=== PATIENT | female | born 1955 | race Caucasian/White ===

== ENCOUNTER → 2017-12-26 09:32 | Outpatient (CLI) | payer OTHER, SELFPAY ==
--- NOTE | 2017-12-26 09:50 | US_ITS ---
US thyroid FNA w guidance right thyroid nodule, FNA w guidance left thyroid nodule, FNA w guidance left neck lymph nodes HISTORY: Patient was noted to have bilateral thyroid masses and left neck adenopathy on outside ultrasound. Tissue diagnosis is requested ITS.REASON: LEFT THYROID NEOPLASM ORDERING PHYSICIAN: Manjit Calloway MD PATIENT AGE: 62 years COMPARISON: No previous exams are available at this institution for comparison. ULTRASOUND THYROID: The right lobe measures 3.3 x 1.7 x 2.8 cm. There is a round 2 x 1.7 cm iso to slightly hypoechoic nodule within the upper pole of the right lobe with peripheral hyperechoic rim with posterior acoustical shadowing consistent with a partially calcified nodule. The left lobe is 5.5 x 3.1 x 4.4 cm. The left lobe is comprised of a heterogeneous mass with the same dimensions as given of the thyroid gland. Lateral to the left lobe of thyroid gland is extensive adenopathy with a lymph node measuring 4 x 2.5 cm. IMPRESSION: 1. 2 cm hypoechoic nodule at the right lobe with partially calcified rim and may be due to an adenoma. 2. Left thyroid mass with left-sided cervical adenopathy suspicious for neoplasm. FINE NEEDLE ASPIRATION OF THE RIGHT LOBE OF THE THYROID GLAND.: TECHNIQUE: Following obtaining informed consent, using aseptic technique and local anesthesia with buffered lidocaine, fine-needle aspiration was performed of the nodule of interest using sonographic guidance. 3 passes were made into the nodule with a 25-gauge needle. Specimen was given to cytology. FINE NEEDLE ASPIRATION OF THE LEFT LOBE OF THE THYROID GLAND.: TECHNIQUE: Following obtaining informed consent, using aseptic technique and local anesthesia with buffered lidocaine, fine-needle aspiration was performed of the nodule of interest using sonographic guidance. 3 passes were made into the nodule with a 25-gauge needle. Specimen was given to cytology FINE NEEDLE ASPIRATION OF THE LEFT LATERAL NECK LYMPH NODES: TECHNIQUE: Following obtaining informed consent, using aseptic technique and local anesthesia with buffered lidocaine, fine-needle aspiration was performed of the nodule of interest using sonographic guidance. 3 passes were made into the nodule with a 25-gauge needle. Specimen was given to cytology The patient tolerated the procedure well without evidence of immediate complications and left the ultrasound suite in stable condition. Pathologist was present during the procedure and confirm tissue specimen from each site. CYTOLOGY: FNA right thyroid: Negative for malignant cells FNA left thyroid: Malignant FNA left-sided cervical lymph nodes: Malignant IMPRESSION: Status post FNA of right and left thyroid gland and left-sided cervical lymph nodes. No immediate common locations. FNA of left thyroid and left-sided cervical lymph nodes showed malignant findings. 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
--- NOTE | 2017-12-26 09:50 | US_ITS ---
US thyroid HISTORY: Enlarged thyroid/mass ORDERING PHYSICIAN: Manjit Calloway MD PATIENT AGE: 62 years COMPARISON: None FINDINGS: Right lobe: The right lobe is 3.3 x 1.7 x 2.8 cm. There is a 1.8 cm rounded hypoechoic nodule in the upper pole on the right with peripheral increased echogenicity consistent with a partially calcified nodule. Left lobe: 5.5 x 3.1 x 4.4 cm. The left lobe is nearly entirely made of a large nodule/mass measuring approximately 4 x 2.5 cm. This nodule is heterogeneous Isthmus: Unremarkable Extensive cervical adenopathy is present in the left neck IMPRESSION: 1. 1.8 cm right thyroid nodule peripheral calcification well-circumscribed. 2. 4 cm heterogeneous left thyroid mass 3. Extensive left cervical adenopathy
--- NOTE | 2017-12-26 10:05 | XR_ITS ---
XR chest 2V HISTORY: ITS.REASON: THYROID NEOPLASM, CERVICAL LYMPHADENOPATHY ORDERING PHYSICIAN: Manjit Calloway MD PATIENT AGE: 62 years COMPARISON: None available FINDINGS: Unremarkable cardiovascular structures. No lobar consolidation or collapse. There is increased density left peritracheal region consistent with patient's left thyroid mass as seen on the recent ultrasound. No obvious mediastinal or hilar adenopathy. No acute bony anomalies. IMPRESSION: 1. Left paratracheal mass consistent with enlarged thyroid gland/thyroid mass. 2. Otherwise negative chest
== END ==
PROVIDERS: PCP Family Medicine; Visit Provider Otolaryngology
DX: D34 Benign neoplasm of thyroid gland (principal); R59.0 Localized enlarged lymph nodes
CPT/HCPCS: 10022 ×3; 71046; 76536